=== PATIENT | male | born 1955 | race Caucasian/White ===

== ENCOUNTER → 2016-08-02 | Outpatient (CLI) | payer OTHER, BC ==
--- NOTE | 2016-08-02 09:09 | DIAGNOSTIC IMAGING REPORT ---
LEFT SHOULDER 3 VIEWS CLINICAL HISTORY: Left shoulder pain. FINDINGS: 3 views of left shoulder are obtained. No prior studies are available for comparison at the time of dictation. The skeletal structures are well mineralized. No fracture or dislocation is seen. Productive degenerative change is identified at the acromioclavicular joint. The glenohumeral articulation is preserved. The overlying soft tissues are within normal limits. Imaged left lung parenchyma appears clear. IMPRESSION: Mild degenerative change as above with no acute bony abnormality seen in the left shoulder. Electronically signed by: Hay Arredondo M.D. 08/02/2016 9:08 AM Dictated Date/Time: 08/02/2016 9:07 AM
== END | disposition home or self-care (01) ==
LOC: C.RAD1850 08:54
PROVIDERS: ATTEND Preventive Medicine Occupational Medicine
DX: M25.512 Pain in left shoulder (principal)

== ENCOUNTER → 2016-08-16 | Outpatient (CLI) | payer OTHER, BC ==
--- NOTE | 2016-08-16 19:34 | DIAGNOSTIC IMAGING REPORT ---
MRI left shoulder LEFT UPPER EXT JOINT WITHOUT CLINICAL HISTORY: Trauma pain TECHNIQUE: MRI multi axial acquisition COMPARISON STUDY: None FINDINGS: Signal characteristics the osseous structures are unremarkable. There is no bone marrow replacing process. There are moderate degenerative changes of the acromioclavicular joint. Evaluation of the rotator cuff shows moderate supraspinatus tendinopathy. There is a small superficial partial thickness tear at its superior surface. Infraspinatus and subscapularis tendons are intact. Glenoid labrum shows mild degenerative substance change at the anterior aspect labrum. A major acute tear, however is not identified. Biceps tendon is intact within the bicipital groove. Findings of mild degenerative changes of the articular services the glenohumeral joint. There is a small osteophyte projecting from the inferior aspect of the acromioclavicular joint creating slight impingement. IMPRESSION: 1. Moderate supraspinatus tendinopathy with a small partial thickness tear of the superior tendinous surface. 2. Hypertrophic change acromioclavicular joint creating slight impingement upon the anterior margin of the supraspinatus musculotendinous junction. 3. All remaining ligamentous and tendinous structures are intact. 4. Mild degenerative change articular services the glenohumeral joint with mild to moderate degenerative substance change of the anterior glenoid labrum. Electronically signed by: Hosea Hughes M.D. 08/16/2016 7:33 PM Dictated Date/Time: 08/16/2016 7:25 PM
== END | disposition home or self-care (01) ==
LOC: C.MRI 18:42
PROVIDERS: ATTEND Preventive Medicine Occupational Medicine
DX: M62.838 Other muscle spasm (principal); S43.402A Unspecified sprain of left shoulder joint, initial encounter; X58.XXXA Exposure to other specified factors, initial encounter

== ENCOUNTER → 2017-01-07 | Outpatient (CLI) | payer OTHER, BC ==
--- NOTE | 2017-01-07 14:16 | DIAGNOSTIC IMAGING REPORT ---
RIGHT INGUINAL ULTRASOUND CLINICAL HISTORY: Right inguinal pain COMPARISON STUDY: No previous studies for comparison. FINDINGS: There is a reducible fat-containing right inguinal hernia. IMPRESSION: Reducible fat-containing right inguinal hernia Electronically signed by: Cody Price M.D. 01/07/2017 2:15 PM Dictated Date/Time: 01/07/2017 2:15 PM
== END | disposition home or self-care (01) ==
LOC: C.ULTR 13:36
PROVIDERS: ATTEND Nurse Practitioner Adult Health
DX: K40.90 Unilateral inguinal hernia, without obstruction or gangrene, not specified as recurrent (principal)